=== PATIENT | female | born 1975 | race Caucasian/White ===

== ENCOUNTER → 2017-06-24 | Outpatient (CLI) | payer OTHER | LOC: CIMAGING 13:59 | PROVIDERS: ATTEND Family Medicine | DX: Z12.31 Encounter for screening mammogram for malignant neoplasm of breast (principal) ==

== ENCOUNTER 2017-10-18 14:54 | Emergency (ER) | payer OTHER ==
[2017-10-18] MEDS ORDERED: MECLIZINE HCL 25 MG TAB PO ONE (15:51)
--- NOTE | 2017-10-18 17:37 | EDPHY ---
H & P Stated Complaint: intermittent dizziness for 3weeks, previous workup Time Seen by Provider: 10/18/17 15:05 HPI/ROS: This patient complains of dizziness. 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 She feels that it is more lightheadedness than vertiginous though she mentions that position changes seem to contribute at times to the dizziness. She reports that she saw her chiropractor did have a low blood pressure early on the course of her dizziness and was instructed to take more sodium electrolytes that resolved her hypertension. She subsequently followed up with her family practitioner [address] [place] [address]-Dr. Ochoa who performed at [facility], metabolic panel and thyroid studies are all normal. She is referred to Ear Nose Throat specialist and cardiology but has not been able to see them yet. She reports that she had a normal EKG and her doctor's office as well. She reports that the symptoms 10 to last for approximately an hour time typically and afterwards she feels very fatigued. She also reports some difficulty thinking and concentrating when she is in the midst of a dizzy episode. She had a similar episode of lesser intensity a few years ago that lasted for 1 week and then resolved without intervention. ROS: Constitutional: No fevers or chills HEENT: No recent URI symptoms except for right ear pain last week and some intermittent popping sensations in her ear. No tinnitus. No change in her hearing. Pulmonary: No cough shortness of breath. Cardiovascular: No chest pain or heart palpitations currently though she reports intermittent brief heart palpitations that do not seem related to the episodes of dizziness. No palpitations today. No lower extremity swelling. GI: No abdominal pain. Intermittent mild nausea when she is dizzy. No vomiting. Musculoskeletal: No neck pain Neuro: Mild headache intermittently over the past 3 weeks. Currently she has a minimal headache and declines analgesics. She describes location is generalized. No focal numbness tingling weakness. While she currently has dizziness she denies any confusion currently. 10 point review of symptoms is performed and otherwise negative with exception of pertinent positives and negatives listed in HPI and ROS Source: Patient Exam Limitations: No limitations - Medical/Surgical History Hx Asthma: Yes Other PMH: back problems/asthma - Family History Significant Family History: No pertinent family hx - Social History Smoking Status: Never smoked Alcohol Use: Other (The patient admits to heavy drinking in August but reports that more recently she has had wine through 4 days a week. She took a week off of any alcohol or caffeine and noticed no change in her dizziness) Drug Use: Marijuana (She reports occasional THC and she was taking CBD well for musculoskeletal back pain but stopped that a week ago thinking that might be contributing to her symptoms.) Additional Social History: Works as a massage therapist Her with whom she lives does not have a headache, dizziness or other symptoms She reports some lingering grief over a friend who a little over a year ago that she cared for in the last stages of his cancer disease. August was the anniversary of his and she still has his ashes in her home. - Physical Exam Exam: Physical exam: Vital signs are normal General: Patient is in no acute distress. HEENT: Is no external evidence of trauma on exam. Eyes: Pupils are equal and reactive to light. Extraocular motions are intact. Optic fundi: Clear with no papilledema or hemorrhage. Nose atraumatic. Ears: Clear bilaterally with no hemotympanum. Oropharynx: No dental trauma or malocclusion. No intraoral lacerations. Eyes: Pupils are equal and reactive to light. Extraocular motions are intact. Optic fundi: Clear with no papilledema or hemorrhage. Lungs: Clear to auscultation bilaterally Neck: Supple no meningismus. Cardiac: Regular rate and rhythm no murmur gallop or rub. Abdomen: Soft nontender no organomegaly Neuro: GCS of 15. Cranial nerves II through XII intact. Cerebellar exam is normal as judged by symmetric rapid hand movements bilaterally. No pronator drift. No sensory or motor deficits are appreciated. Judah-Hallpike test is negative for nits diagnosis though it does elicit some vertigo. Initial differential diagnosis: Peripheral vertigo, doubt Hendry's disease or other endocrine illness, conversion disorder, cardiac disease Constitutional: Initial Vital Signs Temperature (C) 36.5 C 10/18/17 15:10 Heart Rate 70 10/18/17 15:10 Respiratory Rate 18 10/18/17 15:10 Blood Pressure 145/90 H 10/18/17 15:10 O2 Sat (%) 97 10/18/17 15:10 O2 Delivery Mode Room Air Allergies/Adverse Reactions: erythromycin base Allergy (Verified 10/18/17 15:10) Penicillins Allergy (Verified 10/18/17 15:10) prednisone Allergy (Verified 10/18/17 15:10) Home Medications: Medication Instructions Recorded Albuterol 5 mg/ml INH 10/18/14 Aviane-28 Tablet 10/18/14 LORAZEPAM 10/18/14 Qvar 40 (RX) 10/18/14 Fluticasone Nasal [Flonase Nasal 2 sprays NASAL DAILY #1 mdi 10/18/17 Moroni (RX)] Meclizine HCl [Meclizine HCl 25 mg 25 mg PO TID PRN #20 tab 10/18/17 (RX,OTC)] Ondansetron Odt [Zofran Odt] 4 - 8 mg PO Q4PRN PRN #4 tab 10/18/17 Medical Decision Making - Diagnostics Imaging Results: Imaging Impressions Head CT 10/18/17 16:46 Impression: No acute intracranial process. Findings and recommendations discussed with SYLVESTER GALEANO at 1717 hour, 12/2017. Imaging: Discussed imaging studies w/ call center rn Radiologist ED Course/Re-evaluation: Meclizine p.o. With minimal improvement in her vertiginous symptoms. Orthostatic vital signs are negative. Patient was initially but tearful about her episodes of dizziness concerned that have is affecting her life making it difficult to work. She felt somewhat reassured with negative head CT she has vertiginous symptoms with movement given negative Judah Hallpike test for benign positional vertigo can rule that diagnosis out. And she does seem to have a peripheral vertigo and this may be related to a serous otitis though it is not overtly evident on exam of the ear she describes symptoms of popping and discomfort in her ear recently. Will treat her with Flonase steroid nasal spray, meclizine and follow up with ENT. I also encouraged her to keep her follow up with Cardiology given her intermittent heart palpitations. - Data Points Medications Given: Discontinued Medications Meclizine HCl (Meclizine Hcl) 25 mg PO EDNOW ONE Stop: 10/18/17 15:52 Last Admin: 10/18/17 16:06 Dose: 25 mg Point of Care Test Results: Urine Collection Date 10/18/17 Collection Time 15:40 HCG Results Negative Urine Dip Collection Date 10/18/17 Collection Time 15:40 Specific [place] (1.002-1.030) 1.010 PH (5.0-7.5) 6.0 Leukocytes (Negative) Negative Nitrites (Negative) Negative Protein (Negative) Negative Glucose (Negative) Negative Ketones (Negative) Negative Urobilnogen (0.2-1.0 EU) 0.2 Bilirubin (Negative) Negative Blood (Negative) Negative Departure - Departure Disposition: Home, Routine, Self-Care Clinical Impression: Vertigo Condition: Good Instructions: Vertigo (ED) Additional Instructions: Diagnosis: Vertigo Your CT head is normal today. Urinalysis normal. Plan: Continue drinking plenty fluids Meclizine as needed for dizziness Zofran if needed for nausea Flonase steroid nasal spray Follow up with Dr. Doty or ENT doctor of her choice in 7-10 days for recheck Return for any significant worsening despite treatment plan. Referrals: Alisson Thakkar MD [Primary Care Provider] - As per Instructions Margie Doty MD [Medical Doctor] - As per Instructions Prescriptions: Fluticasone Nasal [Flonase Nasal Moroni (RX)] 2 sprays NASAL DAILY #1 mdi Meclizine HCl [Meclizine HCl 25 mg (RX,OTC)] 25 mg PO TID PRN #20 tab PRN Reason: vertigo Ondansetron Odt [Zofran Odt] 4 - 8 mg PO Q4PRN PRN #4 tab PRN Reason: Vomiting
[2017-10-18 17:46] VITALS: BP 109/74
== END 2017-10-18 17:46 | disposition home or self-care (01) ==
LOC: CED 14:54
DX: R42 Dizziness and giddiness (principal)
CPT/HCPCS: 70450-PO

== ENCOUNTER 2018-06-21 10:23 | Emergency (ER) | payer OTHER ==
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
[2018-06-21] MEDS ORDERED: ONDANSETRON 4 MG/2 ML VIAL IVP ONE (11:02)
[2018-06-21] MEDS ORDERED: fentaNYL 100 MCG/2 ML INJ IVP ONE (11:02)
[2018-06-21] MEDS ORDERED: HYDROmorphONE/DILAUDID 1 MG/ML INJ IVP ONE (12:01)
[2018-06-21] MEDS ORDERED: NS 1,000 ML IV ONE (12:02)
[2018-06-21 13:45] VITALS: BP 108/75
--- NOTE | 2018-06-21 15:34 | CPEKG ---
Test Reason : OPEN Blood Pressure : / mmHG Vent. Rate : 061 BPM Atrial Rate : 060 BPM P-R Int : 136 ms QRS Dur : 083 ms QT Int : 405 ms P-R-T Axes : 076 061 045 degrees QTc Int : 408 ms Sinus rhythm Confirmed by Wesly Wharton ([id number]) on 06/21/2018 3:34:04 PM Referred By: Wesly Wharton Confirmed By:Wesly Wharton
== END 2018-06-21 13:43 | disposition home or self-care (01) ==
LOC: CED 10:23
DX: R10.11 Right upper quadrant pain (principal); R10.12 Left upper quadrant pain; R11.0 Nausea; M54.6 Pain in thoracic spine; R16.0 Hepatomegaly, not elsewhere classified; E86.9 Volume depletion, unspecified
CPT/HCPCS: 76705-PO; 80053-ER; 81025-ER; 85025-QW-ER; 85379-QW-ER; 96361-ER; 96374-ER; 96375-ER; 99285-ER; J1170; J2405; J3010